=== PATIENT | female | born 1940 | race Caucasian/White ===

== ENCOUNTER → 2018-06-09 | Outpatient (REF) | payer MEDICARE, BC ==
[2018-06-09 14:14] LABS: BASO # 0.1 10^3/uL (0.0-0.2); BASO % 0.9 % (0.0-1.0); EOS # 0.2 10^3/uL (0.0-0.50); EOS % 2.9 % (0.0-3.0); HEMATOCRIT 45.8 % (36.0-47.0); HEMOGLOBIN 15.1 g/dl (12.0-15.5); LYMPH # 1.5 10^3/uL (1.5-4.5); LYMPH % 26.6 % (24.0-44.0); MEAN CORPUSCULAR VOLUME 91.1 fl (80.0-96.0); MONO # 0.4 10^3/uL (0.0-0.8); MONO % 7.2 % (0.0-5.0); NEUTROPHILS # 3.4 10^3/uL (1.8-7.7); NEUTROPHILS % 62.2 % (36.0-66.0); PLATELET COUNT, AUTOMATED 275 10^3/uL (150-450); RED BLOOD COUNT 5.03 10^6/uL (4.00-5.40); WHITE BLOOD COUNT 5.5 10^3/uL (4.0-10.0)
[2018-06-09 14:34] LABS: HEMOGLOBIN A1c 6.3 %
[2018-06-09 14:43] LABS: ALT/SGPT 57 U/L (12-78); BILIRUBIN,TOTAL 0.7 MG/DL (0.2-1.0); BLOOD UREA NITROGEN 10 MG/DL (7-18); CARBON DIOXIDE LEVEL 28 MEQ/L (21-32); CHLORIDE LEVEL 107 MEQ/L (98-107); CHOLESTEROL LEVEL 248 MG/DL (<200); CHOLESTEROL RISK RATIO 5.061 (<5); CREATININE FOR GFR 0.63 MG/DL (0.55-1.30); FREE T4 1.08 NG/DL (0.76-1.46); GLOMERULAR FILTRATION RATE > 60.0 (>39); GLUCOSE, FASTING 115 MG/DL (70-100); HDL CHOLESTEROL 49 MG/DL (>40); LDL CHOLESTEROL 170 MG/DL (<100); NON-HDL-C 199 MG/DL; POTASSIUM SERUM 4.3 MEQ/L (3.5-5.1); SODIUM LEVEL 140 MEQ/L (136-145); TOTAL PROTEIN 7.1 GM/DL (6.4-8.2); TRIGLYCERIDES LEVEL 146 MG/DL (<150)
[2018-06-09 14:47] LABS: TOTAL 25(OH) VITAMIN D 40.6 NG/ML (30.0-100.0)
== END ==
LOC: M SFHCSACK 09:03
PROVIDERS: ATTEND Physician Assistant
DX: I10 Essential (primary) hypertension (principal); E78.2 Mixed hyperlipidemia; Z80.8 Family history of malignant neoplasm of other organs or systems; Z83.3 Family history of diabetes mellitus; E55.9 Vitamin D deficiency, unspecified

== ENCOUNTER 2018-11-29 09:53 | Inpatient (IN) | payer MEDICARE, BC ==
[~2018-11-29] VITALS: Ht 160 cm; Wt 88.7 kg
[2018-11-29] MEDS ORDERED: AMLO5TAB6 PO (10:02)
--- NOTE | 2018-11-29 10:38 | REP ---
Portable chest, 10:19 a.m., single AP view with the patient sitting: There are no comparisons. The lung og are clear. The cardiac size is normal. The adam, mediastinum, and skeletal structures are unremarkable. Impression: Negative portable chest. Electronically Signed by Edu Carter MD 11/29/2018 10:30 A
[2018-11-29] MEDS ORDERED: ASPIRIN 325 MG TAB PO ONE (10:45)
[2018-11-29 10:57] LABS: BASO # 0.1 10^3/uL (0.0-0.2); EOS # 0.1 10^3/uL (0.0-0.5); HEMATOCRIT 45.6 % (36.0-47.0); HEMOGLOBIN 15.3 g/dl (12.0-15.5); LYMPH # 1.4 10^3/uL (1.5-5.0); MEAN CORPUSCULAR HEMOGLOBIN 30.7 pg (27.0-33.0); MEAN CORPUSCULAR HGB CONC 33.6 g/dl (32.0-36.5); MEAN CORPUSCULAR VOLUME 91.4 fl (80.0-96.0); MONO # 0.5 10^3/uL (0.0-0.8); MONO % 7.6 % (0.0-5.0); NEUTROPHILS # 3.9 10^3/uL (1.5-8.5); NEUTROPHILS % 66.1 % (36.0-66.0); PLATELET COUNT, AUTOMATED 269 10^3/uL (150-450); RED BLOOD COUNT 4.99 10^6/uL (4.00-5.40)
[2018-11-29 11:15] LABS: INR 0.99; PROTHROMBIN TIME 12.8 SECONDS (11.8-14.0)
[2018-11-29] MEDS ORDERED: ASPI81TA85 PO (11:15)
[2018-11-29] MEDS ORDERED: AIRB1TAB PO (11:15)
[2018-11-29 11:16] LABS: PARTIAL THROMBOPLASTIN TIME 32.8 SECONDS (25.0-38.4)
[2018-11-29] MEDS ORDERED: LABETALOL HCL 100 MG/20 ML VIAL IV STA (11:18)
[2018-11-29 11:20] LABS: BLOOD UREA NITROGEN 10 MG/DL (7-18); CARBON DIOXIDE LEVEL 27 MEQ/L (21-32); CHLORIDE LEVEL 106 MEQ/L (98-107); CK-MB VALUE MASS 1.4 NG/ML (<3.6); CPK CREATINE PHOSPHOKINASE 68 U/L (26-192); CREATININE FOR GFR 0.68 MG/DL (0.55-1.30); GLOMERULAR FILTRATION RATE > 60.0 (>39); GLUCOSE, FASTING 146 MG/DL (70-100); MB/CK RELATIVE INDEX 2.06 (< OR =4); SODIUM LEVEL 142 MEQ/L (136-145); TROPONIN I < 0.02 NG/ML (< 0.10)
--- NOTE | 2018-11-29 11:39 | REP ---
CT of the brain without IV contrast: There are no comparisons. There is no hemorrhage. There is no edema, mass effect or midline shift. The cortical stripe is unremarkable. The sulci are diffusely enlarged compatible with diffuse cortical atrophy. Impression: There is no hemorrhage, acute infarct or mass. Diffuse cortical atrophy. Electronically Signed by Edu Carter MD 11/29/2018 11:31 A
[2018-11-29 12:48] LABS: RHEUMATOID FACTOR QUANT < 10.0 IU/ML (<15.0)
[2018-11-29] MEDS ORDERED: ATORVASTATIN 20 MG TAB PO ONE (13:00)
[2018-11-29 13:05] LABS: ERYTHROCYTE SEDIMENTATION RATE 13 mm/hr (0-30)
--- NOTE | 2018-11-29 13:16 | REPVR ---
PROCEDURE INFORMATION: Exam: MR Head Without Contrast Exam date and time: 11/29/2018 10:45 AM Clinical history: 78 years old, female; Weakness, extremity; Left; Additional info: CVA left sided weakness TECHNIQUE: Imaging protocol: MR of the head without contrast. COMPARISON: CT Head without contrast 11/29/2018 10:20 AM FINDINGS: Brain: Examination reveals a 12 x 7 mm focus of restricted diffusion in the posterior limb of right internal capsule consistent with acute infarction. No acute hemorrhage, masses or midline shift is seen. There are multiple small hypointense blooming artifacts noted in bilateral cerebral hemispheres, basal ganglia, thalami and midline pratik likely representing small foci of chronic hemorrhage/mineral deposition likely related to chronic hypertension on gradient echo/susceptibility weighted images. There is moderate patchy increased T2 signal intensity within the bilateral cerebral periventricular white matter, consistent with chronic microvascular ischemic changes. There are multiple small focal areas of chronic ischemia in bilateral frontal, parietal and periatrial white matter. Chronic ischemic changes/lacunar infarctions are seen in bilateral basal ganglia. There is mild diffuse cerebral atrophy present, consistent with this patient's age. Brainstem: Chronic ischemic changes are seen in the pratik. Ventricles: The ventricular system demonstrates mild diffuse compensatory enlargement. Bones/joints: Unremarkable. Soft tissues: Unremarkable. Sinuses: Normal as visualized. No acute sinusitis. Mastoid air cells: Normal as visualized. No mastoid effusion. Orbits: Unremarkable. IMPRESSION: 1. Examination reveals a 12 x 7 mm focus of restricted diffusion in the posterior limb of right internal capsule consistent with acute infarction. No acute hemorrhage, masses or midline shift is seen. 2. There are multiple small hypointense blooming artifacts noted in bilateral cerebral hemispheres, basal ganglia, thalami and midline pratik likely representing small foci of chronic hemorrhage/mineral deposition likely related to chronic hypertension on gradient echo/susceptibility weighted images. Electronically signed by: Shorty Johnson On 11/29/2018 13:15:38 PM
--- NOTE | 2018-11-29 13:18 | REPVR ---
PROCEDURE INFORMATION: Exam: MR Angiogram Head Without Contrast, Arteries Exam date and time: 11/29/2018 10:45 AM Clinical history: 78 years old, female; Weakness; Additional info: CVA left sided weakness TECHNIQUE: Imaging protocol: MR angiogram head without contrast. Exam focused on the arteries. Other technique: 3-D reconstructed images were submitted for interpretation. COMPARISON: CT Head without contrast 11/29/2018 10:20 AM FINDINGS: Right internal carotid artery: Unremarkable. Intracranial segment is patent with no significant stenosis. No aneurysm. Right anterior cerebral artery: Unremarkable. No occlusion or significant stenosis. No aneurysm. Right middle cerebral artery: Unremarkable. No occlusion or significant stenosis. No aneurysm. Right posterior cerebral artery: Unremarkable. No occlusion or significant stenosis. No aneurysm. Right vertebral artery: Unremarkable. No occlusion or significant stenosis. No aneurysm. Left internal carotid artery: Unremarkable. Intracranial segment is patent with no significant stenosis. No aneurysm. Left anterior cerebral artery: Unremarkable. No occlusion or significant stenosis. No aneurysm. Left middle cerebral artery: Unremarkable. No occlusion or significant stenosis. No aneurysm. Left posterior cerebral artery: Unremarkable. No occlusion or significant stenosis. No aneurysm. Left vertebral artery: Unremarkable. No occlusion or significant stenosis. No aneurysm. Basilar artery: Unremarkable. No occlusion or significant stenosis. No aneurysm. IMPRESSION: No acute findings. Electronically signed by: Shorty Johnson On 11/29/2018 13:18:31 PM
[2018-11-29] MEDS: ENOXAPARIN 40 MG/0.4 ML SYRINGE (J1650) SC SCH (13:19)
[2018-11-29] MEDS ORDERED: CLOPIDOGREL 75 MG TAB PO ONE (14:00)
[2018-11-29] MEDS: METOPROLOL TART 25 MG TABLET PO SCH ×2 (14:48→20:38)
--- NOTE | 2018-11-29 15:00 | REP ---
Bilateral carotid artery duplex ultrasound: Peak flow velocity analysis: RIGHT LEFT ICA Peak flow velocity cm/sec 87.9 71.0 ICA Diastolic flow velocity cm/sec 23.1 19.6 ICA/CCA Ratio 1.3 1.14 ECA Peak flow velocity cm/sec 125.9 99.8 CCA Peak flow velocity cm/sec 98.5 111.7. The There is shallow atheromatous plaque diffusely bilaterally from the common carotid arteries to the bulb is and into the internal and external carotid arteries bilaterally. There is focally moderate plaque at the origins of the internal carotid arteries and external carotid arteries bilaterally. The peak flow velocities are normal bilaterally. The findings indicate there is less than 50% of luminal narrowing bilaterally. There is no significant stenosis on the right on the left. There is antegrade flow in the vertebral arteries bilaterally. Impression: No significant stenosis on the right or the left. Electronically Signed by Edu Carter MD 11/29/2018 02:52 P
--- NOTE | 2018-11-29 15:38 | HPE ---
DATE OF ADMISSION: 11/29/2018 CHIEF COMPLAINT: Left arm and hand weakness. HISTORY OF PRESENT ILLNESS: This is a 71-year-old female with a history of dyslipidemia, hypertension, over 50 years of second-hand smoking from a who smoked four packs per day, who was in her usual state of health until yesterday morning when she woke up at 7-7:30 in the morning and noted that her left arm was weak. She noted that she was dropping things with her left hand, and she could not regain any good functioning. She was still able to do things but very slowly. She then drove herself, went shopping. She was able to eat. She just felt very clumsy. At that time, around 5:30 she called her children, and they had dinner at [facility]. She had no facial drooping. She had no slurring of speech. Family noted that she was able to handle her utensils without difficulty. She is right-handed at baseline. She then went home, drove herself home. That is when she noted that she started to have slurring of speech again, and at nighttime around 9:30, when two adopted cats jumped on her bed, she tried to tell them to get out. She had difficulty pronouncing her words and heard herself mumbling instead. All through the night she was tossing and turning at home. Did not seek any medical attention. She did take two small baby aspirin, 81 mg. In the morning when her daughter came to see her, she was able to walk to the door, open the door. She was noted to have persistent slurred speech. Her daughter convinced her to come into the emergency room. As she was getting into the car, it was difficult for her to step into the car on her left side and had to position herself, because her foot felt like it was dragging. She walked unassisted, but in the emergency room (ER) there was a weakness noted on the left arm and leg with CT of the head being negative. MRI of the brain, however, shows an acute infarct in the right internal capsule in the posterior limb. Patient was given aspirin 325 mg and Plavix 75 mg. She refused Lipitor, stating that she had a significant amount of weakness when she was put on that. Her initial blood pressure on admission was 182/90, which peaked at 204/98. ER physician had given her intravenous labetalol 10 mg with improvement to 168/91. MRA of the brain showed no aneurysm. Hospitalist service was called to admit for acute right internal capsule cerebrovascular accident (CVA) with persistent left-sided weakness with slurring of speech. Per Dr. Giron, neurologist personal computer network analyst, the patient is to have an echo, carotid Dopplers, admit to telemetry for arrhythmia monitoring. PAST MEDICAL HISTORY: 1. Hypertension. 2. Dyslipidemia. 3. More than 50 years of second-hand smoking with her smoking four packs per day for 50 years until he . 4. Vitamin D deficiency. ALLERGIES: IODINE, causing hives, seasonal allergies. PAST SURGICAL HISTORY: 1. 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 2. Enlarged lymph node on the left side that was removed 25 years ago. HOME MEDICATIONS: - amlodipine 5 mg daily - aspirin 162 mg as needed for discomfort - multivitamin - Airborne Effervescent one tablet daily CURRENT HOSPITAL MEDICATIONS: - aspirin 81 mg daily - Plavix 75 mg daily - metoprolol 25 mg every 6 hours; hold for systolic pressure less than 160 - hydralazine 10 mg by mouth every 6 hours; hold for systolic pressure less than 160 FAMILY HISTORY: Father and mother are . One son is alive. Another daughter, alive, age 42. She has three sons and one daughter. Mother had many transient ischemic attacks (TIAs) and was on warfarin. at the age of 83. Father had CAD, myocardial infarction (CO). at the age of 76. Grandmother had polycythemia vera. SOCIAL HISTORY: Patient currently lives in a ranch apartment for the past year. Bedroom, bathroom, kitchen are all on the same floor. There are no steps to get into the apartment. Patient denies any history of smoking but has been exposed to second-hand smoking for the past 57 years with her smoking four packs per day. 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 She denies any alcohol use. Has occasional wine or cider during the holidays REVIEW OF SYSTEMS: Per history of present illness (HPI). A 12-point system otherwise negative. PHYSICAL EXAMINATION: Temperature 98.9, pulse 79, respiratory rate 17, blood pressure on arrival was 182-202 systolic, diastolic of 90-93. Patient had a peak blood pressure of 217/103, at which point she received IV labetalol 10 mg, which resulted in improvement of blood pressure to 168/91. Pulse sinus rhythm, ventricular rate of 70-79, respiratory rate 15-17, pulse oximetry is 96% on room air. Generally, patient is awake, alert, oriented to person, place, and time. Able to provide a history. Her speech is fluent. She has no expressive aphasia. There is no slurring of speech. She has no facial asymmetry. No jugular venous distention. No thyromegaly. Left hand has 4/5 motor function. Left lower extremity is 4/5. No sensory disturbance. Downgoing toes. No pronator drift. White count 6, hemoglobin 15, hematocrit 45, platelet count 269. Sodium 142, potassium 4, chloride 106, bicarbonate 27, BUN 10, creatinine 0.69, glucose 146, calcium 9. Total CK 68, MB fraction 1.4, troponin less than 0.02. EKG: Sinus rhythm, ventricular rate of 78 with inferior changes. Troponin is less than 0.02. CT of the head: No acute infarct, mass, hemorrhage, diffuse cortical atrophy. Chest x-ray 11/29/2018: Negative portable chest. Brain MRI 11/29/2018 shows 12 x 7 mm focus of restricted diffusion in the posterior limb of the right internal capsule, consistent with acute infarct. No acute hemorrhage, mass midline shift. Multiple small hypointense blooming artifacts in bilateral cerebral hemisphere, basal ganglia, thalami, midline pratik, representing small foci of chronic hemorrhage, mineral deposition, likely related to chronic hypertension. There is moderate patchy increased T2 signal intensity within bilateral cerebral periventricular white matter, consistent with chronic microvascular ischemic changes. Multiple small focal areas of chronic ischemia in bilateral frontal, parietal, periatrial white matter. Chronic ischemic changes, lacunar infarcts are seen in bilateral basal ganglia. Mild diffuse cerebral atrophy, consistent with the patient age. Chronic ischemic changes seen in the pratik, ventricular system. Mild diffuse compensatory enlargement. No acute sinusitis. MRA of the brain: No acute findings. Intracranial segment is patent with no significant stenosis. No aneurysm in the left interna carotid artery, left anterior cerebral artery, left middle cerebral artery, left posterior cerebral artery, left vertebral artery. ASSESSMENT AND PLAN: This is a 78-year-old female with a history of dyslipidemia, hypertension, second-hand smoking exposure of 57 years due to smoking four packs a day presents to the emergency room with 2-day history of left arm and hand weakness with worsening in the left lower extremity and new onset of slurring of speech starting at 9:30 p.m. last evening. Symptoms started at 7:[address] of the head was negative. MRI shows acute infarct in the right internal capsule. Patient had received aspirin. She is admitted as an inpatient for two midnights for treatment of acute CVA. 1. Acute right internal capsule CVA. MRA shows no stenosis or aneurysm. Patient has been given aspirin. She will be continued on aspirin 81 mg daily, Plavix 75 mg daily. Blood pressure control but will remain with permissive hypertension. Keep blood pressure above 160 for the first 24 hours with holding parameters on the metoprolol. Patient states that she has had an allergy to statin medications, in particular, Lipitor causing her weakness. Dr. Giron, neurologist, has been consulted and recommended an echocardiogram and carotid Doppler, telemetry monitoring to rule out arrhythmia. Patient will be checked for cardiac lipid profile, antinuclear antibody (MARIO), rheumatoid factor, Homocystine, lupus type anticoagulant. Neurologic checks every 4 hours with telemetry monitoring. Repeat CT if no neurological changes are noted. As the patient had recently had some slurring of speech and dysarthria, which is completely resolved, she has been kept nothing by mouth and aspiration precautions for now. Swallow evaluation by speech therapy. Physical therapy (PT)/occupational therapy (OT) and acute rehabilitation unit admission screen. 2. Hypertensive urgency with presenting blood pressure of 204/98 and 217/103. Patient did receive labetalol intravenously, but due to acute right internal capsule CVA, patient will be permitted to have permissive hypertension. Will hold blood pressure medications for systolic pressure that is less than 160. 3. Dyslipidemia. Patient is not on any statin medications due to prior complaints of weakness with statins, particularly Lipitor 4. Code status. Patient is a full code. Patient's daughter, Sariah Wei, phone number [phone], is present at the bedside. 5. Deep vein thrombosis (DVT) prophylaxis with Lovenox. 6. Diet. Potential aspiration risk. Keep nothing by mouth and check for aspiration. If no signs of aspiration, may have a [id number] diet. MTDD
[2018-11-29 16:11] VITALS: BP 160/74
[2018-11-29] MEDS ORDERED: SLF 3 ML SYR IV PRN (17:15)
[2018-11-29] MEDS: **hydrALAZINE** 10 MG TAB PO SCH ×2 (17:41→22:55)
[2018-11-29 20:00] VITALS: BP 174/86
[2018-11-29] MEDS: SLF 3 ML SYR IV SCH (22:55)
[2018-11-29 23:59] VITALS: BP 178/79
[2018-11-30] VITALS (7 sets, daily range): BP systolic 130–179; BP diastolic 76–90
[2018-11-30] MEDS: METOPROLOL TART 25 MG TABLET PO SCH ×2 (02:09→08:31)
[2018-11-30] MEDS: **hydrALAZINE** 10 MG TAB PO SCH ×2 (03:34→10:00)
[2018-11-30] MEDS: SLF 3 ML SYR IV SCH ×3 (05:30→21:37)
[2018-11-30 06:16] LABS: HEMATOCRIT 43.9 % (36.0-47.0); HEMOGLOBIN 14.3 g/dl (12.0-15.5); MEAN CORPUSCULAR HEMOGLOBIN 30.1 pg (27.0-33.0); MEAN CORPUSCULAR HGB CONC 32.6 g/dl (32.0-36.5); MEAN CORPUSCULAR VOLUME 92.4 fl (80.0-96.0); PLATELET COUNT, AUTOMATED 264 10^3/uL (150-450); RED BLOOD COUNT 4.75 10^6/uL (4.00-5.40); WHITE BLOOD COUNT 6.9 10^3/uL (4.0-10.0)
[2018-11-30 06:35] LABS: ALBUMIN 3.4 GM/DL (3.2-5.2); ALT/SGPT 92 U/L (12-78); BILIRUBIN,DIRECT 0.2 MG/DL (0.0-0.2); BILIRUBIN,TOTAL 0.6 MG/DL (0.2-1.0); BLOOD UREA NITROGEN 12 MG/DL (7-18); CALCIUM LEVEL 8.6 MG/DL (8.8-10.2); CARBON DIOXIDE LEVEL 27 MEQ/L (21-32); CHLORIDE LEVEL 107 MEQ/L (98-107); CHOLESTEROL LEVEL 210 MG/DL (<200); CHOLESTEROL RISK RATIO 5.526 (<5); CREATININE FOR GFR 0.67 MG/DL (0.55-1.30); GLOMERULAR FILTRATION RATE > 60.0 (>39); GLUCOSE, FASTING 119 MG/DL (70-100); HDL CHOLESTEROL 38 MG/DL (>40); LDL CHOLESTEROL 146 MG/DL (<100); NON-HDL-C 172 MG/DL; POTASSIUM SERUM 3.8 MEQ/L (3.5-5.1); SODIUM LEVEL 142 MEQ/L (136-145); TOTAL PROTEIN 6.8 GM/DL (6.4-8.2); TRIGLYCERIDES LEVEL 131 MG/DL (<150)
--- NOTE | 2018-11-30 08:11 | ECGEPIP ---
[facility] - ED Test Date: 2018-11-29 Pat Name: RISHABH FELDMAN Department: Room: - Gender: Female Manager Actuarial: JChandan : 1940 Requested By: BALTAZAR Quevedo Order Number: [id number] Reading MD: Kallie Curran Measurements Intervals [place] Rate: 78 P: 51 AR: 151 QRS: 17 QRSD: 101 T: 12 QT: 378 QTc: 431 Interpretive Statements SINUS RHYTHM PROBABLE INFERIOR MYOCARDIAL INFARCTION, PROBABLY OLD NSTTW abnormalities No prior Electronically Signed on 11-30-2018 8:11:28 EDT by Kallie Curran
[2018-11-30] MEDS: ENOXAPARIN 40 MG/0.4 ML SYRINGE (J1650) SC SCH (08:30)
[2018-11-30] MEDS: CLOPIDOGREL 75 MG TAB PO SCH (08:31)
--- NOTE | 2018-11-30 08:37 | ECHO ---
DATE OF PROCEDURE: 11/29/2018 Date of : 1940 Age: 78 Gender: Female Height: 63 inches Weight: 198 pounds Body surface area: 1.93 meters squared Inpatient - currently in the emergency room. REFERRING PHYSICIAN: Dr. Tena Lawson INDICATION: CVA. MEASUREMENTS: 2D Measurements: RV: 3.2 cm LV: 4.2 cm Septum: 1.0 cm Posterior wall: 1.0 cm Aortic root: 3.4 cm LA: 3.8 cm LVEF: 75% Doppler Measurements: AV: 1.5 meters per second LVOT: 1.0 meters per second LVOT diameter: 1.8 cm MV-E: 95, A: 124, E/A ratio: 0.8 Early mitral deceleration time: 236 milliseconds E prime: 7.2, A prime: 8.7, E/E prime ratio: 13.6 Pulmonary capillary wedge pressure: 13.2 mmHg PV: 0.9 meters per second Pulmonary artery acceleration time: 127 milliseconds RVSP: 29 mmHg IVC: 1.6 cm COMMENTS: Normal sinus rhythm without intraventricular conduction disturbance. M-mode and two-dimensional echocardiography was performed with pulsed, continuous wave, color flow and tissue Doppler studies. Normal left ventricular size, wall thickness and hyperkinetic wall motion. Borderline dilated left atrium with Doppler evidence of an impairment of left ventricular (LV) diastolic function and current estimated mean left atrial pressure upper limits of normal. Normal right heart chamber sizes and motion with Doppler estimated pulmonary arterial pressure upper limits of normal. Normal inferior vena cava (IVC) size and collapse against an elevated central venous pressure. Subtle aortic valvular sclerosis without functional abnormality. Normal aortic dimensions. Mildly thickened mitral valvular apparatus with adequate leaflet excursion and possibly some prolapse associated with at least mild mitral insufficiency. Could not rule out a vegetation with certainty. Normal appearing and functioning tricuspid valve. No pericardial effusion. If a cardiac source of embolic material is seriously suspect, especially with the mitral valve findings, we would recommend a transesophageal echocardiogram be performed along with a complete blood count, sedimentation rate and two sets of blood cultures by 12 hours.
[2018-11-30] MEDS ORDERED: ASPIRIN 325 MG TAB PO SCH (09:00)
[2018-11-30] MEDS ORDERED: ATENOLOL 50 MG TAB PO SCH (09:00)
[2018-11-30] MEDS ORDERED: hydroCHLOROthiazide 25 MG TAB PO SCH (09:00)
[2018-11-30] MEDS: ASPIRIN 81 MG CHEW TABLET PO SCH (10:03)
--- NOTE | 2018-11-30 10:33 | CR ---
DATE OF CONSULTATION: 11/29/2018 REFERRING PHYSICIAN: Dr. Tena Lawson. REASON FOR CONSULTATION: Left arm and hand weakness, imbalance and slurred speech. HISTORY OF PRESENT ILLNESS: The patient is a 78-year-old woman with history of hypertension, dyslipidemia with second hand smoking from her who smoked four packs per day for 50 years who woke up in the morning of November 28, 2018 and felt that she was dropping things with her left hand. She could not regain any good function of her left hand. She was able to do things slowly. She went shopping and drove. She felt clumsy. She had dinner with her family and was dropping things from her left hand. She did not have any facial weakness at that time. That night when she was with her cats, she felt her speech was slurred. She was feeling clumsy and off balance. She woke up in the morning and felt her speech was off and her left arm was week. Her daughter came to see her and brought her to emergency department. She was noted to have weakness of her left arm and leg. She denies any headaches, neck or back pain. She denies dysphagia, diplopia, urinary incontinence, falls or loss of consciousness. DIAGNOSTIC STUDIES: CT scan of her head was unremarkable. MRI scan of brain showed a small right internal capsule, acute ischemic stroke. She also has extensive small-vessel ischemic disease of brain and bilateral basal ganglia old lacunar strokes. MRA brain and carotid ultrasound are reportedly unremarkable. PAST MEDICAL HISTORY: Hypertension. Dyslipidemia. History of secondhand smoking. Vitamin D deficiency. Parotid tumor resection in 1997. Enlarged lymph node removed 25 years ago. ALLERGIES: IODINE. HOME MEDICATIONS: - amlodipine 5 mg p.o. daily. - She does not take aspirin usually but she took two tablets of 81 mg aspirin the day she had her neurological symptoms. - multivitamin FAMILY HISTORY: Her mother had transient ischemic attacks and was on Coumadin and she from cerebral hemorrhage. Father had coronary artery disease. SOCIAL HISTORY: She denies smoking, but was exposed to secondhand smoking as her smoked for many years as described above. She denies alcohol or illicit drugs. REVIEW OF SYSTEMS: All systems were reviewed and found to be noncontributory except as mentioned in history of present illness. PHYSICAL EXAMINATION: Blood pressure in the emergency department was 217/103 and current blood pressure is 164/91, temperature 97, pulse 68, respiratory 13, 96% saturation on room air. Heart: Regular rate and rhythm. Lungs: Clear to auscultation. Abdomen: Soft, nontender, nondistended. No pedal edema. No musculoskeletal abnormalities. No rash. No signs of meningeal irritation. The patient is awake, alert, oriented to place, person and time. Normal speech, comprehension and repetition. Extraoral muscles are intact. No facial weakness. Tongue and uvula are midline. 5-/5 strength in left arm. She has mild left pronator drift. She has slowing of movement of left hand fingers. Strength in her legs is 5/5. Deep tendon flexes 1+ throughout. Normal sensation throughout. Gait is mildly unsteady. ASSESSMENT: 1. Acute posterior limb of the right internal capsule small ischemic stroke. 2. Extensive small-vessel ischemic disease of brain and old bilateral lacunar strokes. 3. Clumsy left hand and dysarthria syndrome related to above. PLAN: 1. Continue telemetry monitoring. 2. Echocardiogram. 3. Aspirin 81 mg by mouth daily and Plavix 75 mg by mouth daily. 4. Check fasting lipid profile. The patient had difficulty tolerating Lipitor in past. Pravastatin or Crestor can be considered based on her lipid profile tomorrow. 5. Physical and occupational therapy. 6. Follow with our office in 2 - 4 weeks after hospital discharge.
[2018-11-30] MEDS ORDERED: ASPI81CH8 PO (11:05)
[2018-11-30] MEDS ORDERED: CLOP75TA2 PO (11:05)
[2018-11-30] MEDS ORDERED: LISI10TA15 PO (11:05)
[2018-11-30] MEDS ORDERED: ATEN50TA2 PO (11:05)
[2018-11-30] MEDS ORDERED: CRES10TA PO (11:05)
--- NOTE | 2018-11-30 11:58 | IPN ---
DATE OF SERVICE: 11/30/2018 SUBJECTIVE: Patient still complains of left arm weakness and despite tolerating her diet well, she still notices some heaviness in her tongue. No signs of aspiration, coughing when she eats. According to nursing, no fever, chills, shortness of breath, chest pain, pressure or tightness. Patient is ambulating well and has passed a home safety evaluation with recommendations for outpatient physical therapy. Telemetry with sinus rhythm overnight. No arrhythmias, atrial fibrillation or atrial flutter. Echocardiogram read by Dr. Pearl shows ejection fraction (EF) of 75% with normal LV size, wall motion, some impairment of diastolic dysfunction possibly with some mitral valve prolapse with at least mild mitral insufficiency. Normal appearing and functioning tricuspid valves. Patient has been started on aspirin and Plavix. No overnight issues per nursing. Blood pressure has been maintained between 160 to 180 overnight on metoprolol and hydralazine. Vital signs: Temperature 97.2, pulse 74, respiratory rate 18, blood pressure is 179/84, currently 158/74, 96% on room air. NEURO:patient is awake, alert, oriented to person, place and time, answering questions appropriately without expressive aphasia or word finding difficulties. No use of respiratory accessory muscles. Speech is fluent. Able to comprehend. No facial asymmetry. speaks in full sentences. Tongue is midline. Motor function is 5/5 on bilateral upper and lower extremities. Patient has some dysmetria on finger to nose testing of the left hand. HEENT: EOMI, NCAT, no JVD, thyromegaly, cervical LAD, moist mucus membranes LUNGS: CTAB AEBE no wheezing, rales, or rhonchi HEART: S1 S2 Sinus rhythm, nondisplaced PMI, no rubs, or gallops ABD: obese, soft NT ND no HSM no abdominal bruits (+) bowel sounds EXT: no cyanosis, clubbing or pitting edema. LABORATORY DATA: White count 6.9, hemoglobin 14, hematocrit 43, platelet count 264. Sodium 142, potassium 3.9, chloride 107, bicarbonate 27, BUN 12, creatinine 0.67, glucose 119. Total bilirubin 0.6, direct bilirubin 0.2, AST 44, ALT 92, alkaline phosphatase 108, troponin less than 0.02, total protein 6.8, albumin of 3.4, triglyceride 131, LDL 146, non-HDL 172, HDL 38, homocystine is pending. 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 Per Dr. Giron, continue with aspirin and Plavix, pravastatin or Crestor due to intolerance to Lipitor. Outpatient physical therapy and followup in the office in 2 weeks after hospital discharge. MRA Brain, carotid dopplers,and Echocardiogram were negative. Rheumatologic workup and hypercoagulable workup are still pending. Hypertensive emergency with presenting blood pressure of 217/103 in the emergency s/p iv labetalol with permissive hypertension of 160-180 mmHg over the next 24hrs after admission. was on metoprolol 25 every 6 hours and hydralazine overnight with holding parameters for systolic pressure<160 mmHg. To simplify medical regimen for home, will attempt once daily medications with atenolol, lisinopril. Abnormal EKG with old inferior wall MS no acute complaints of ischemia. Echo is unremarkable. Pt risk factors for CAD include >50 years secondhand cigarette smoking from her who used to smoke 4ppd x 57 years of their marriage, hyperlipidemia, post- menopausal state, hypertension, hypercholesterolemia, and psychosocial stressors with being unable to sell her house in [place] since her and one year anniversary of her son's this November. continue on ASA. pt is reluctant to take statins due to prior history of lipitor-induced weakness. Crestor, per pt request, has been discontinued. Diastolic Dysfunction, euvolemic detected on Echo. optimize blood pressure control, HANSEL diet, and LONA inhibitor or ARB if tolerated. Dyslipidemia, pravastatin or Crestor per neurology recommendations. DISPOSITION: Discharge home in the morning with outpatient followup with neurology, primary care physician and outpatient physical therapy. MTDD
[2018-11-30] MEDS ORDERED: NS 500 ML IV ONE (18:00)
--- NOTE | 2018-11-30 18:01 | IPN ---
DATE: 11/30/2018 CRITICAL CARE NOTE 4:48 pm - 5:28 pm RN paged regarding patient complaining of worsening weakness and heaviness of her tongue noted while she was eating her salad at lunch today, with some slurred speech. Symptoms slowly resolved when the patient took a nap after lunch, but c/o persistent weakness, and "no energy." Per the Daughter at the bedside, slurring of speech got better but "she can't even pull herself up on the bed." PHYSICAL EXAMINATION: Physical examination is unchanged. Temperature 98.1, pulse 72, respiratory rate 18, blood pressure 142/76, 97% on room air. Neuro Exam: The patient is awake, alert, oriented times three. There is no slurring of speech. She is able to speak in full sentences. No respiratory distress. Extraocular muscles are intact. Tongue and uvula are midline. Motor function on the left upper and lower extremities is 5/5. Left sided dysmetria on finger to nose testing, unchanged examination from previous earlier this morning. She has normal sensation bilaterally. ASSESSMENT AND PLAN: 1. Generalized weakness in the setting of an acute right internal capsule CVA. Obtain repeat CT of the brain to rule out edema, mass effect or hemorrhagic transformation. Normal saline 500 bolus to allow for permissive hypertension. Continue aspirin and Plavix for now. Crestor has been discontinued. The patient complains of severe weakness. Lisinopril has been changed to in the morning with holding parameters for systolic pressure less than 140. MTDD
--- NOTE | 2018-11-30 18:16 | REPVR ---
PROCEDURE INFORMATION: Exam: CT Head Without Contrast Exam date and time: 11/30/2018 5:53 PM Clinical history: 78 years old, female; Weakness, extremity; Left; Additional info: CVA TECHNIQUE: Imaging protocol: Computed tomography of the head without contrast. Radiation optimization: All CT scans at this facility use at least one of these dose optimization techniques: automated exposure control; mA and/or kV adjustment per patient size (includes targeted exams where dose is matched to clinical indication); or iterative reconstruction. COMPARISON: CT Head without contrast 11/29/2018 10:20 AM FINDINGS: Brain: There is mild parenchymal volume loss. White matter changes are demonstrated in the subcortical, centrum semiovale and periventricular white matter consistent with age related small vessel white matter angiopathic gliosis. Ventricles: Normal. No ventriculomegaly. Bones/joints: Unremarkable. No acute fracture. Sinuses: Visualized sinuses are unremarkable. No fluid levels. Mastoid air cells: Visualized mastoid air cells are well aerated. Soft tissues: Unremarkable. IMPRESSION: There is mild parenchymal volume loss. White matter changes are demonstrated in the subcortical, centrum semiovale and periventricular white matter consistent with age related small vessel white matter angiopathic gliosis. Electronically signed by: Carlos Diego On 11/30/2018 18:16:02 PM
[2018-11-30] MEDS ORDERED: SODIUM CHLORIDE 0.9% 500 ML IV ONE (19:45)
[2018-11-30] MEDS ORDERED: LISINOPRIL 10 MG TAB PO SCH (21:00)
[2018-11-30] MEDS ORDERED: NS 1,000 ML IV SCH (21:00)
[2018-11-30] MEDS ORDERED: ROSUVASTATIN 10 MG TAB (CRESTOR) PO SCH (21:00)
[2018-11-30] MEDS ORDERED: ATORVASTATIN 20 MG TAB PO SCH (21:00)
[2018-12-01 04:00] VITALS: BP 182/84
[2018-12-01] MEDS: SLF 3 ML SYR IV SCH ×2 (05:18→08:45)
[2018-12-01] MEDS ORDERED: LISINOPRIL 10 MG TAB PO SCH (06:00)
[2018-12-01] MEDS ORDERED: LISI10TA4 PO (06:47)
[2018-12-01 07:36] VITALS: BP 152/84
[2018-12-01 08:43] VITALS: BP 144/70
[2018-12-01] MEDS: ASPIRIN 81 MG CHEW TABLET PO SCH (08:44)
[2018-12-01] MEDS: CLOPIDOGREL 75 MG TAB PO SCH (08:44)
[2018-12-01] MEDS: ENOXAPARIN 40 MG/0.4 ML SYRINGE (J1650) SC SCH (08:45)
[2018-12-01] MEDS ORDERED: amLODIPine 5 MG TAB PO SCH (09:00)
[2018-12-01 11:40] VITALS: BP 166/84
[2018-12-03 08:19] LABS: ANTI DOUBLE STRAND-DNA AB <1 IU/mL (0-9); ANTINUCLEAR ANTIBODIES DIRECT Positive (Negative); HOMOCYST(E)INE SERUM 8.7 umol/L (0.0-15.0); RNP ANTIBODIES 0.3 AI (0.0-0.9); SJOGREN'S ANTI SS-A <0.2 AI (0.0-0.9); SJOGREN'S ANTI SS-B <0.2 AI (0.0-0.9); SMITH ANTIBODIES <0.2 AI (0.0-0.9)
== END 2018-12-01 14:30 | disposition home health service (06) | DRG 65 ==
LOC: M ED 09:53 → M ED INP 12:16 → M PCU 16:11
PROVIDERS: ADMIT General Practice; ATTEND General Practice
DX: I63.531 Cerebral infarction due to unspecified occlusion or stenosis of right posterior cerebral artery (principal); G81.92 Hemiplegia, unspecified affecting left dominant side; E78.5 Hyperlipidemia, unspecified; I10 Essential (primary) hypertension; R47.1 Dysarthria and anarthria; E55.9 Vitamin D deficiency, unspecified; I16.0 Hypertensive urgency; Z79.82 Long term (current) use of aspirin; Z79.899 Other long term (current) drug therapy; Z88.8 Allergy status to other drugs, medicaments and biological substances; Z77.22 Contact with and (suspected) exposure to environmental tobacco smoke (acute) (chronic)

== ENCOUNTER 2018-12-24 09:45 | Outpatient (RCR) | payer MEDICARE, BC ==
[~2018-12-24 09:45] MED LIST: AIRB1TAB PO; AMLO5TAB6 PO; ASPI81CH8 PO; ASPI81TA85 PO; ATEN50TA2 PO; CLOP75TA2 PO; CRES10TA PO; LISI10TA15 PO; LISI10TA4 PO
== END 2018-12-25 | disposition home or self-care (01) ==
LOC: M OT 09:45
PROVIDERS: ATTEND Physician Assistant
DX: I69.354 Hemiplegia and hemiparesis following cerebral infarction affecting left non-dominant side (principal); I69.393 Ataxia following cerebral infarction; I69.392 Facial weakness following cerebral infarction; R49.0 Dysphonia

== ENCOUNTER → 2019-01-02 | Outpatient (REF) | payer MEDICARE, BC ==
[2019-01-02 14:31] LABS: BASO # 0.1 10^3/uL (0.0-0.2); BASO % 1.1 % (0.0-1.0); EOS # 0.2 10^3/uL (0.0-0.5); EOS % 2.6 % (0.0-3.0); HEMATOCRIT 45.9 % (36.0-47.0); HEMOGLOBIN 15.4 g/dl (12.0-15.5); LYMPH # 1.5 10^3/uL (1.5-5.0); LYMPH % 22.9 % (24.0-44.0); MEAN CORPUSCULAR HEMOGLOBIN 30.9 pg (27.0-33.0); MEAN CORPUSCULAR HGB CONC 33.6 g/dl (32.0-36.5); MEAN CORPUSCULAR VOLUME 92.2 fl (80.0-96.0); MONO # 0.5 10^3/uL (0.0-0.8); MONO % 7.8 % (0.0-5.0); NEUTROPHILS # 4.3 10^3/uL (1.5-8.5); NEUTROPHILS % 65.3 % (36.0-66.0); PLATELET COUNT, AUTOMATED 287 10^3/uL (150-450); RED BLOOD COUNT 4.98 10^6/uL (4.00-5.40); WHITE BLOOD COUNT 6.6 10^3/uL (4.0-10.0)
[2019-01-02 14:39] LABS: ALT/SGPT 87 U/L (12-78); BILIRUBIN,TOTAL 0.7 MG/DL (0.2-1.0); BLOOD UREA NITROGEN 9 MG/DL (7-18); CALCIUM LEVEL 9.2 MG/DL (8.8-10.2); CARBON DIOXIDE LEVEL 30 MEQ/L (21-32); CHLORIDE LEVEL 105 MEQ/L (98-107); CHOLESTEROL LEVEL 137 MG/DL (<200); CHOLESTEROL RISK RATIO 2.795 (<5); CREATININE FOR GFR 0.72 MG/DL (0.55-1.30); GLOMERULAR FILTRATION RATE > 60.0 (>39); GLUCOSE, FASTING 114 MG/DL (70-100); HDL CHOLESTEROL 49 MG/DL (>40); LDL CHOLESTEROL 59 MG/DL (<100); NON-HDL-C 88 MG/DL; POTASSIUM SERUM 4.4 MEQ/L (3.5-5.1); SODIUM LEVEL 141 MEQ/L (136-145); TOTAL PROTEIN 7.4 GM/DL (6.4-8.2); TRIGLYCERIDES LEVEL 146 MG/DL (<150)
[2019-01-02 14:44] LABS: TOTAL 25(OH) VITAMIN D 33.9 NG/ML (30.0-100.0)
[2019-01-02 14:48] LABS: HEMOGLOBIN A1c 6.3 %
== END ==
LOC: M SFHCSACK 08:00
PROVIDERS: ATTEND Physician Assistant
DX: I10 Essential (primary) hypertension (principal); E78.2 Mixed hyperlipidemia; R73.09 Other abnormal glucose; E55.9 Vitamin D deficiency, unspecified

== ENCOUNTER 2019-01-21 09:55 | Outpatient (RCR) | payer MEDICARE, BC | END 2019-01-24 | LOC: M ST 09:55 | PROVIDERS: ATTEND Physician Assistant | DX: R29.898 Other symptoms and signs involving the musculoskeletal system (principal); R53.1 Weakness; Z51.89 Encounter for other specified aftercare; I63.59 Cerebral infarction due to unspecified occlusion or stenosis of other cerebral artery ==

== ENCOUNTER 2019-02-10 10:13 | Outpatient (RCR) | payer MEDICARE, BC | END 2019-02-24 | LOC: M ST 10:13 | PROVIDERS: ATTEND Physician Assistant | DX: Z51.89 Encounter for other specified aftercare (principal); R49.0 Dysphonia ==

== ENCOUNTER → 2019-03-12 | Outpatient (REF) | payer MEDICARE, BC ==
[2019-03-12 13:46] LABS: BASO # 0.1 10^3/uL (0.0-0.2); BASO % 1.1 % (0.0-1.0); EOS # 0.2 10^3/uL (0.0-0.5); EOS % 3.1 % (0.0-3.0); HEMATOCRIT 46.3 % (36.0-47.0); HEMOGLOBIN 15.3 g/dl (12.0-15.5); LYMPH # 1.5 10^3/uL (1.5-5.0); LYMPH % 23.3 % (24.0-44.0); MEAN CORPUSCULAR HEMOGLOBIN 30.7 pg (27.0-33.0); MEAN CORPUSCULAR VOLUME 92.8 fl (80.0-96.0); MONO # 0.4 10^3/uL (0.0-0.8); MONO % 6.9 % (0.0-5.0); NEUTROPHILS % 65.1 % (36.0-66.0); PLATELET COUNT, AUTOMATED 283 10^3/uL (150-450); RED BLOOD COUNT 4.99 10^6/uL (4.00-5.40); WHITE BLOOD COUNT 6.2 10^3/uL (4.0-10.0)
[2019-03-12 13:53] LABS: ALBUMIN 4.2 GM/DL (3.2-5.2); ALT/SGPT 89 U/L (12-78); BILIRUBIN,TOTAL 0.7 MG/DL (0.2-1.0); BLOOD UREA NITROGEN 8 MG/DL (7-18); CARBON DIOXIDE LEVEL 27 MEQ/L (21-32); CHLORIDE LEVEL 107 MEQ/L (98-107); CHOLESTEROL LEVEL 147 MG/DL (<200); CHOLESTEROL RISK RATIO 3.127 (<5); CREATININE FOR GFR 0.63 MG/DL (0.55-1.30); GLOMERULAR FILTRATION RATE > 60.0 (>39); GLUCOSE, FASTING 115 MG/DL (70-100); HDL CHOLESTEROL 47 MG/DL (>40); LDL CHOLESTEROL 72 MG/DL (<100); NON-HDL-C 100 MG/DL; SODIUM LEVEL 142 MEQ/L (136-145); TOTAL PROTEIN 7.5 GM/DL (6.4-8.2); TRIGLYCERIDES LEVEL 139 MG/DL (<150)
== END ==
LOC: M LABNEURO 13:07
PROVIDERS: ATTEND Psychiatry & Neurology Neurology
DX: H53.8 Other visual disturbances (principal); Z79.82 Long term (current) use of aspirin; Z79.899 Other long term (current) drug therapy

== ENCOUNTER → 2019-08-21 | Outpatient (REF) | payer MEDICARE, BC ==
[~2019-08-21] MED LIST changes: -AIRB1TAB PO; +AMLO1TAB24 PO; -AMLO5TAB6 PO; -ASPI81TA85 PO; +ASPI81TA86 PO; +LISI10TA22 PO; -LISI10TA4 PO; +MV-M1TAB29 PO
[2019-08-21 11:59] LABS: BASO # 0.1 10^3/uL (0.0-0.2); BASO % 0.9 % (0.0-1.0); EOS # 0.1 10^3/uL (0.0-0.5); EOS % 1.6 % (0.0-3.0); HEMATOCRIT 46.2 % (36.0-47.0); HEMOGLOBIN 14.9 g/dl (12.0-15.5); LYMPH # 1.7 10^3/uL (1.5-5.0); LYMPH % 24.2 % (24.0-44.0); MEAN CORPUSCULAR HEMOGLOBIN 29.9 pg (27.0-33.0); MEAN CORPUSCULAR HGB CONC 32.3 g/dl (32.0-36.5); MEAN CORPUSCULAR VOLUME 92.8 fl (80.0-96.0); MONO # 0.5 10^3/uL (0.0-0.8); NEUTROPHILS # 4.6 10^3/uL (1.5-8.5); NEUTROPHILS % 65.9 % (36.0-66.0); PLATELET COUNT, AUTOMATED 295 10^3/uL (150-450); RED BLOOD COUNT 4.98 10^6/uL (4.00-5.40)
[2019-08-21 12:22] LABS: ALT/SGPT 78 U/L (12-78); BILIRUBIN,TOTAL 0.6 MG/DL (0.2-1.0); BLOOD UREA NITROGEN 9 MG/DL (7-18); CALCIUM LEVEL 9.3 MG/DL (8.8-10.2); CARBON DIOXIDE LEVEL 29 MEQ/L (21-32); CHLORIDE LEVEL 107 MEQ/L (98-107); CHOLESTEROL LEVEL 192 MG/DL (<200); CHOLESTEROL RISK RATIO 3.918 (<5); CREATININE FOR GFR 0.61 MG/DL (0.55-1.30); FREE T4 1.04 NG/DL (0.76-1.46); GLOMERULAR FILTRATION RATE > 60.0 (>39); GLUCOSE, FASTING 124 MG/DL (70-100); HDL CHOLESTEROL 49 MG/DL (>40); LDL CHOLESTEROL 118 MG/DL (<100); NON-HDL-C 143 MG/DL; POTASSIUM SERUM 4.5 MEQ/L (3.5-5.1); SODIUM LEVEL 140 MEQ/L (136-145); TOTAL 25(OH) VITAMIN D 42.9 NG/ML (30.0-100.0); TOTAL PROTEIN 7.5 GM/DL (6.4-8.2); TRIGLYCERIDES LEVEL 125 MG/DL (<150)
== END ==
LOC: M SFHCPLAZ 08:56
PROVIDERS: ATTEND Physician Assistant
DX: I10 Essential (primary) hypertension (principal); E55.9 Vitamin D deficiency, unspecified; E78.2 Mixed hyperlipidemia; Z13.29 Encounter for screening for other suspected endocrine disorder

== ENCOUNTER → 2020-09-16 | Outpatient (CLI) | payer MEDICARE, BC ==
[2020-09-16 13:31] LABS: HEMATOCRIT 45.3 % (36.0-47.0); HEMOGLOBIN 14.8 g/dl (12.0-15.5); MEAN CORPUSCULAR HEMOGLOBIN 29.5 pg (27.0-33.0); MEAN CORPUSCULAR HGB CONC 32.7 g/dl (32.0-36.5); MEAN CORPUSCULAR VOLUME 90.4 fl (80.0-96.0); PLATELET COUNT, AUTOMATED 279 10^3/uL (150-450); RED BLOOD COUNT 5.01 10^6/uL (4.00-5.40); WHITE BLOOD COUNT 7.1 10^3/uL (4.0-10.0)
[2020-09-16 13:58] LABS: ALBUMIN 4.1 GM/DL (3.2-5.2); ALT/SGPT 121 U/L (12-78); BILIRUBIN,TOTAL 0.6 MG/DL (0.2-1.0); BLOOD UREA NITROGEN 8 MG/DL (7-18); CALCIUM LEVEL 9.3 MG/DL (8.8-10.2); CARBON DIOXIDE LEVEL 27 MEQ/L (21-32); CHLORIDE LEVEL 106 MEQ/L (98-107); CHOLESTEROL LEVEL 139 MG/DL (<200); CHOLESTEROL RISK RATIO 3.564 (<5); CREATININE FOR GFR 0.55 MG/DL (0.55-1.30); GLOMERULAR FILTRATION RATE > 60.0 (>32); GLUCOSE, FASTING 128 MG/DL (70-100); HDL CHOLESTEROL 39 MG/DL (>40); LDL CHOLESTEROL 71 MG/DL (<100); NON-HDL-C 100 MG/DL; SODIUM LEVEL 142 MEQ/L (136-145); TRIGLYCERIDES LEVEL 144 MG/DL (<150)
[2020-09-16 14:11] LABS: CREATININE, URINE 36.7 MG/DL; MALB URINE SIEMENS 18.7 MG/L; MAU/CREAT RATIO 50.9 MCG/MG (0.0-30.0)
== END ==
LOC: M PLALAB 10:57
PROVIDERS: ATTEND Physician Assistant
DX: E78.2 Mixed hyperlipidemia (principal); I10 Essential (primary) hypertension; R79.89 Other specified abnormal findings of blood chemistry
CPT/HCPCS: 36415; 80053; 80061; 82043; 85027; G0463

== ENCOUNTER → 2021-06-05 | Outpatient (CLI) | payer MEDICARE, BC ==
[~2021-06-05] MED LIST changes: -LISI10TA15 PO; +LISI10TA24 PO
[2021-06-05 15:31] LABS: HEMOGLOBIN A1c 10.1 %
[2021-06-05 15:48] LABS: ALT/SGPT 85 U/L (12-78); BILIRUBIN,TOTAL 0.7 MG/DL (0.2-1.0); BLOOD UREA NITROGEN 9 MG/DL (7-18); CALCIUM LEVEL 9.6 MG/DL (8.8-10.2); CARBON DIOXIDE LEVEL 29 MEQ/L (21-32); CHLORIDE LEVEL 104 MEQ/L (98-107); CHOLESTEROL LEVEL 136 MG/DL (<200); CREATININE FOR GFR 0.59 MG/DL (0.55-1.30); FREE T4 1.09 NG/DL (0.76-1.46); GLOMERULAR FILTRATION RATE > 60.0 (>32); GLUCOSE, FASTING 198 MG/DL (70-100); HDL CHOLESTEROL 44 MG/DL (>40); LDL CHOLESTEROL 69 MG/DL (<100); NON-HDL-C 92 MG/DL; POTASSIUM SERUM 3.9 MEQ/L (3.5-5.1); SODIUM LEVEL 139 MEQ/L (136-145); TOTAL PROTEIN 7.2 GM/DL (6.4-8.2); TRIGLYCERIDES LEVEL 115 MG/DL (<150)
[2021-06-05 15:49] LABS: TOTAL 25(OH) VITAMIN D 28.3 NG/ML (30.0-100.0)
== END ==
LOC: M PLALAB 12:23
PROVIDERS: ATTEND Nurse Practitioner Adult Health
DX: E55.9 Vitamin D deficiency, unspecified (principal); I10 Essential (primary) hypertension; E78.2 Mixed hyperlipidemia; R73.9 Hyperglycemia, unspecified; Z13.29 Encounter for screening for other suspected endocrine disorder; Z79.899 Other long term (current) drug therapy

== ENCOUNTER → 2021-11-16 | Outpatient (CLI) | payer MEDICARE, BC ==
[2021-11-16 12:36] LABS: HEMOGLOBIN A1c 9.5 %
[2021-11-16 13:01] LABS: ALBUMIN 4.2 GM/DL (3.2-5.2); ALT/SGPT 56 U/L (12-78); BILIRUBIN,TOTAL 0.9 MG/DL (0.2-1.0); BLOOD UREA NITROGEN 10 MG/DL (7-18); CALCIUM LEVEL 9.7 MG/DL (8.8-10.2); CARBON DIOXIDE LEVEL 27 MEQ/L (21-32); CHLORIDE LEVEL 105 MEQ/L (98-107); CHOLESTEROL LEVEL 134 MG/DL (<200); CHOLESTEROL RISK RATIO 2.627 (<5); CREATININE FOR GFR 0.49 MG/DL (0.55-1.30); GLOMERULAR FILTRATION RATE > 60.0 (>32); GLUCOSE, FASTING 105 MG/DL (70-100); HDL CHOLESTEROL 51 MG/DL (>40); LDL CHOLESTEROL 60 MG/DL (<100); NON-HDL-C 83 MG/DL; POTASSIUM SERUM 4.4 MEQ/L (3.5-5.1); SODIUM LEVEL 140 MEQ/L (136-145); TOTAL PROTEIN 7.5 GM/DL (6.4-8.2); TRIGLYCERIDES LEVEL 113 MG/DL (<150)
[2021-11-16 13:35] LABS: TOTAL 25(OH) VITAMIN D 39.3 NG/ML (30.0-100.0)
== END ==
LOC: M PLALAB 08:39
PROVIDERS: ATTEND Nurse Practitioner Adult Health
DX: E11.9 Type 2 diabetes mellitus without complications (principal); E78.2 Mixed hyperlipidemia; E55.9 Vitamin D deficiency, unspecified

== ENCOUNTER → 2021-12-04 | Outpatient (REF) | payer MEDICARE, BC ==
[2021-12-04 14:15] LABS: BASO # 0.1 10^3/uL (0.0-0.2); BASO % 1.1 % (0.0-1.0); EOS # 0.1 10^3/uL (0.0-0.5); EOS % 1.5 % (0.0-3.0); HEMATOCRIT 46.1 % (36.0-47.0); HEMOGLOBIN 14.9 g/dl (12.0-15.5); LYMPH # 1.6 10^3/uL (1.5-5.0); LYMPH % 24.2 % (24.0-44.0); MEAN CORPUSCULAR HEMOGLOBIN 29.9 pg (27.0-33.0); MEAN CORPUSCULAR HGB CONC 32.3 g/dl (32.0-36.5); MEAN CORPUSCULAR VOLUME 92.6 fl (80.0-96.0); MONO # 0.5 10^3/uL (0.0-0.8); MONO % 7.4 % (2.0-8.0); NEUTROPHILS # 4.4 10^3/uL (1.5-8.5); NEUTROPHILS % 65.5 % (36.0-66.0); PLATELET COUNT, AUTOMATED 324 10^3/uL (150-450); RED BLOOD COUNT 4.98 10^6/uL (4.00-5.40); WHITE BLOOD COUNT 6.7 10^3/uL (4.0-10.0)
[2021-12-04 15:29] LABS: ALBUMIN 4.1 GM/DL (3.2-5.2); ALT/SGPT 52 U/L (12-78); BILIRUBIN,TOTAL 0.6 MG/DL (0.2-1.0); BLOOD UREA NITROGEN 8 MG/DL (7-18); CALCIUM LEVEL 9.4 MG/DL (8.8-10.2); CARBON DIOXIDE LEVEL 28 MEQ/L (21-32); CHLORIDE LEVEL 106 MEQ/L (98-107); CHOLESTEROL LEVEL 125 MG/DL (<200); CHOLESTEROL RISK RATIO 2.551 (<5); CREATININE FOR GFR 0.55 MG/DL (0.55-1.30); GLOMERULAR FILTRATION RATE > 60.0 (>32); GLUCOSE, FASTING 99 MG/DL (70-100); HDL CHOLESTEROL 49 MG/DL (>40); LDL CHOLESTEROL 58 MG/DL (<100); NON-HDL-C 76 MG/DL; POTASSIUM SERUM 4.2 MEQ/L (3.5-5.1); SODIUM LEVEL 139 MEQ/L (136-145); TOTAL PROTEIN 7.4 GM/DL (6.4-8.2); TRIGLYCERIDES LEVEL 90 MG/DL (<150)
[2021-12-04 17:08] LABS: HEMOGLOBIN A1c 7.9 %
== END ==
LOC: M PLALAB 13:39
PROVIDERS: ATTEND Psychiatry & Neurology Neurology
DX: E11.9 Type 2 diabetes mellitus without complications (principal); Z86.73 Personal history of transient ischemic attack (TIA), and cerebral infarction without residual deficits

== ENCOUNTER → 2022-01-01 | Outpatient (CLI) | payer MEDICARE, BC ==
[2022-01-01 16:16] LABS: ALBUMIN 4.2 GM/DL (3.2-5.2); ALKALINE PHOSPHATASE 94 U/L (45-117); ALT/SGPT 36 U/L (12-78); AST/SGOT 26 U/L (7-37); BILIRUBIN,TOTAL 0.7 MG/DL (0.2-1.0); BLOOD UREA NITROGEN 7 MG/DL (7-18); CALCIUM LEVEL 9.6 MG/DL (8.8-10.2); CARBON DIOXIDE LEVEL 27 MEQ/L (21-32); CHLORIDE LEVEL 105 MEQ/L (98-107); CREATININE FOR GFR 0.48 MG/DL (0.55-1.30); GLOMERULAR FILTRATION RATE > 60.0 (>32); GLUCOSE, FASTING 86 MG/DL (70-100); POTASSIUM SERUM 4.2 MEQ/L (3.5-5.1); SODIUM LEVEL 141 MEQ/L (136-145); TOTAL PROTEIN 7.4 GM/DL (6.4-8.2)
[2022-01-01 22:30] LABS: HEMOGLOBIN A1c 6.2 %
== END ==
LOC: M PLALAB 08:43
PROVIDERS: ATTEND Nurse Practitioner Adult Health
DX: E11.9 Type 2 diabetes mellitus without complications (principal)

== ENCOUNTER → 2022-04-16 | Outpatient (CLI) | payer MEDICARE, BC ==
[2022-04-16 14:18] LABS: ALBUMIN 4.3 G/DL (3.2-5.2); ALKALINE PHOSPHATASE 83 U/L (46-116); ALT/SGPT 23 U/L (7.0-40); AST/SGOT 20 U/L (<34); BILIRUBIN,TOTAL 0.6 MG/DL (0.3-1.2); BLOOD UREA NITROGEN 11 MG/DL (9-23); CARBON DIOXIDE LEVEL 32 MMOL/L (20-31); CHLORIDE LEVEL 105 MMOL/L (98-107); CREATININE FOR GFR 0.66 MG/DL (0.55-1.30); GLOMERULAR FILTRATION RATE > 60.0 (>32); GLUCOSE, FASTING 56 MG/DL (74-106); HEMOGLOBIN A1c 5.1 % (4.0-6.0); POTASSIUM SERUM 4.4 MMOL/L (3.5-5.1); SODIUM LEVEL 143 MMOL/L (136-145); TOTAL PROTEIN 7.2 G/DL (5.7-8.2)
== END ==
LOC: M PLALAB 09:22
PROVIDERS: ATTEND Nurse Practitioner Adult Health
DX: E11.9 Type 2 diabetes mellitus without complications (principal); E55.9 Vitamin D deficiency, unspecified

== ENCOUNTER → 2022-12-24 | Outpatient (CLI) | payer MEDICARE, BC ==
[2022-12-24 13:47] LABS: ALBUMIN 4.2 G/DL (3.2-5.2); ALKALINE PHOSPHATASE 70 U/L (46-116); ALT/SGPT 15 U/L (7.0-40); AST/SGOT 15 U/L (<34); BILIRUBIN,TOTAL 0.6 MG/DL (0.3-1.2); BLOOD UREA NITROGEN 12 MG/DL (9-23); CALCIUM LEVEL 9.4 MG/DL (8.3-10.6); CARBON DIOXIDE LEVEL 29 MMOL/L (20-31); CHLORIDE LEVEL 104 MMOL/L (98-107); CHOLESTEROL LEVEL 158 MG/DL (<200); CHOLESTEROL RISK RATIO 2.74 (<5); GLOMERULAR FILTRATION RATE > 60.0 (>32); GLUCOSE, FASTING 101 MG/DL (74-106); HDL CHOLESTEROL 57.5 MG/DL (>40); LDL CHOLESTEROL 80.3 MG/DL (<100); NON-HDL-C 100.5 MG/DL; POTASSIUM SERUM 4.2 MMOL/L (3.5-5.1); SODIUM LEVEL 141 MMOL/L (136-145); TOTAL PROTEIN 7.1 G/DL (5.7-8.2); TRIGLYCERIDES LEVEL 101 MG/DL (<150)
[2022-12-24 14:04] LABS: CREATININE, URINE 40.3 MG/DL; MAU/CREAT RATIO 76.9 MCG/MG (0.0-30.0)
[2022-12-24 14:23] LABS: HEMOGLOBIN A1c 5.1 % (4.0-6.0)
== END ==
LOC: M PLALAB 09:19
PROVIDERS: ATTEND Nurse Practitioner Adult Health
DX: E11.9 Type 2 diabetes mellitus without complications (principal); I10 Essential (primary) hypertension; E55.9 Vitamin D deficiency, unspecified

== ENCOUNTER 2023-02-05 07:52 | Day surgery (SDC) | payer MEDICARE, BC ==
[~2023-02-05] VITALS: Ht 160 cm; Wt 72.0 kg
[~2023-02-05 07:52] MED LIST changes: +CEFUROXIME 1MG/0.1ML INTRACAMERAL INJ As Ordered ONE; +CYCLOPENTOLATE 1% OPHTH SOLN 2ML BTL OS SCH; +LIDOCAINE 1% SDV 5ML VIAL As Ordered ONE; +METF-838 PO; +OFLOXACIN 0.3 % (OCUFLOX) OPTH SOL 5ML OS SCH; +PHENYLEPHRINE 2.5% OPHTH SOL 2ML OS SCH; +PROPARACAINE 0.5% OPHTH SOL 15ML OS ONE; +ROSU10TA6 PO; +TROPICAMIDE 1% OPHTH SOLN 15ML OS SCH
[2023-02-05] MEDS ORDERED: MIDAZOLAM INJ 2MG/2ML VIAL As Ordered ONE (09:16)
[2023-02-05 09:55] VITALS: BP 170/85; TEMP 97.1; O2SAT 95
== END 2023-02-05 10:20 | disposition home or self-care (01) ==
LOC: M SDC 07:52
PROVIDERS: ATTEND Ophthalmology
DX: H25.12 Age-related nuclear cataract, left eye (principal)
CPT/HCPCS: 66984; J0697; J2250; V2632

== ENCOUNTER 2023-02-26 06:16 | Day surgery (SDC) | payer MEDICARE, BC ==
[~2023-02-26] VITALS: Ht 160 cm; Wt 72.1 kg
[~2023-02-26 06:16] MED LIST changes: -CEFUROXIME 1MG/0.1ML INTRACAMERAL INJ As Ordered ONE; +CYCLOPENTOLATE 1% OPHTH SOLN 2ML BTL OD SCH; -CYCLOPENTOLATE 1% OPHTH SOLN 2ML BTL OS SCH; -LIDOCAINE 1% SDV 5ML VIAL As Ordered ONE; +OFLOXACIN 0.3 % (OCUFLOX) OPTH SOL 5ML OD SCH; -OFLOXACIN 0.3 % (OCUFLOX) OPTH SOL 5ML OS SCH; +PHENYLEPHRINE 2.5% OPHTH SOL 2ML OD SCH; -PHENYLEPHRINE 2.5% OPHTH SOL 2ML OS SCH; +PROPARACAINE 0.5% OPHTH SOL 15ML OD ONE; -PROPARACAINE 0.5% OPHTH SOL 15ML OS ONE; +TROPICAMIDE 1% OPHTH SOLN 15ML OD SCH; -TROPICAMIDE 1% OPHTH SOLN 15ML OS SCH
[2023-02-26] MEDS ORDERED: LIDOCAINE 1% SDV 5ML VIAL As Ordered ONE (06:32)
[2023-02-26] MEDS ORDERED: BSS IRR 500ML/OMIDRIA 4ML IRR BAG (OR ONLY) As Ordered ONE (06:33)
[2023-02-26] MEDS ORDERED: CEFUROXIME 1MG/0.1ML INTRACAMERAL INJ As Ordered ONE (06:34)
[2023-02-26] MEDS ORDERED: MIDAZOLAM INJ 2MG/2ML VIAL As Ordered ONE (07:15)
[2023-02-26] MEDS ORDERED: fentaNYL 100 MCG/2 ML INJECTION As Ordered ONE (07:16)
[2023-02-26 08:04] VITALS: BP 153/74; TEMP 97.6; O2SAT 97
== END 2023-02-26 08:16 | disposition home or self-care (01) ==
LOC: M SDC 06:16
PROVIDERS: ATTEND Ophthalmology
DX: E11.36 Type 2 diabetes mellitus with diabetic cataract (principal); H25.11 Age-related nuclear cataract, right eye; I10 Essential (primary) hypertension; G47.30 Sleep apnea, unspecified; Z79.899 Other long term (current) drug therapy; Z79.84 Long term (current) use of oral hypoglycemic drugs; Z86.73 Personal history of transient ischemic attack (TIA), and cerebral infarction without residual deficits
CPT/HCPCS: 66984; 92015; J0697; J1097; J2250; J3010; V2788

== ENCOUNTER → 2023-06-04 | Outpatient (CLI) | payer MEDICARE ==
[~2023-06-04] MED LIST changes: -CYCLOPENTOLATE 1% OPHTH SOLN 2ML BTL OD SCH; -OFLOXACIN 0.3 % (OCUFLOX) OPTH SOL 5ML OD SCH; -PHENYLEPHRINE 2.5% OPHTH SOL 2ML OD SCH; -PROPARACAINE 0.5% OPHTH SOL 15ML OD ONE; -TROPICAMIDE 1% OPHTH SOLN 15ML OD SCH
[2023-06-04 11:33] LABS: CREATININE, URINE 46.2 MG/DL; MAU/CREAT RATIO 77.9 MCG/MG (0.0-30.0)
[2023-06-04 11:47] LABS: ALBUMIN 4.2 G/DL (3.2-5.2); ALKALINE PHOSPHATASE 70 U/L (46-116); ALT/SGPT 18 U/L (7.0-40); AST/SGOT 13 U/L (<34); BILIRUBIN,TOTAL 0.6 MG/DL (0.3-1.2); BLOOD UREA NITROGEN 18 MG/DL (9-23); CALCIUM LEVEL 9.3 MG/DL (8.3-10.6); CARBON DIOXIDE LEVEL 30 MMOL/L (20-31); CHLORIDE LEVEL 107 MMOL/L (98-107); CHOLESTEROL LEVEL 149 MG/DL (<200); CHOLESTEROL RISK RATIO 2.76 (<5); CREATININE FOR GFR 0.71 MG/DL (0.55-1.30); GLOMERULAR FILTRATION RATE > 60.0 (>32); GLUCOSE, FASTING 94 MG/DL (74-106); HDL CHOLESTEROL 53.9 MG/DL (>40); LDL CHOLESTEROL 72.1 MG/DL (<100); NON-HDL-C 95.1 MG/DL; POTASSIUM SERUM 4.3 MMOL/L (3.5-5.1); SODIUM LEVEL 142 MMOL/L (136-145); TOTAL 25(OH) VITAMIN D 35.5 NG/ML (20.0-100.0); TOTAL PROTEIN 6.9 G/DL (5.7-8.2); TRIGLYCERIDES LEVEL 115 MG/DL (<150)
[2023-06-04 12:12] LABS: HEMOGLOBIN A1c 5.5 % (4.0-6.0)
== END ==
LOC: M PLALAB 08:33
PROVIDERS: ATTEND Nurse Practitioner Adult Health
DX: E11.9 Type 2 diabetes mellitus without complications (principal); E78.2 Mixed hyperlipidemia; I10 Essential (primary) hypertension; E55.9 Vitamin D deficiency, unspecified

== ENCOUNTER 2023-08-16 09:08 | Emergency (ER) | payer MEDICARE, BC ==
[~2023-08-16] VITALS: Ht 160 cm; Wt 74.4 kg
[~2023-08-16 09:08] MED LIST changes: -ROSU10TA6 PO; +ROSU10TA61 PO
[2023-08-16] MEDS: BACITRACIN OINTMENT 30GM TUBE TOP ONE (10:57)
[2023-08-16] MEDS: BOOSTRIX VACCINE (TETANUS/DIPHTH/ACEL. PERTUSSIS) 0.5ML SYR IM.IMMUN ONE (10:57)
[2023-08-16 12:29] VITALS: BP 184/96; TEMP 97.4; O2SAT 97
== END 2023-08-16 12:33 | disposition home or self-care (01) ==
LOC: M ED 09:08
DX: S01.01XA Laceration without foreign body of scalp, initial encounter (principal); S51.012A Laceration without foreign body of left elbow, initial encounter; Y92.019 Unspecified place in single-family (private) house as the place of occurrence of the external cause; Y93.9 Activity, unspecified; Y99.9 Unspecified external cause status; W19.XXXA Unspecified fall, initial encounter; G47.33 Obstructive sleep apnea (adult) (pediatric); Z88.8 Allergy status to other drugs, medicaments and biological substances; Z91.041 Radiographic dye allergy status; Z79.1 Long term (current) use of non-steroidal anti-inflammatories (NSAID); Z79.84 Long term (current) use of oral hypoglycemic drugs; Z79.899 Other long term (current) drug therapy; Z23 Encounter for immunization

== ENCOUNTER → 2023-12-06 | Outpatient (CLI) | payer MEDICARE, BC ==
[2023-12-06 13:32] LABS: ALBUMIN 4.1 G/DL (3.2-5.2); ALKALINE PHOSPHATASE 78 U/L (46-116); ALT/SGPT 18 U/L (7.0-40); AST/SGOT 13 U/L (<34); BILIRUBIN,TOTAL 0.5 MG/DL (0.3-1.2); BLOOD UREA NITROGEN 13 MG/DL (9-23); CARBON DIOXIDE LEVEL 30 MMOL/L (20-31); CHLORIDE LEVEL 107 MMOL/L (98-107); CHOLESTEROL LEVEL 153 MG/DL (<200); CHOLESTEROL RISK RATIO 3.04 (<5); CREATININE FOR GFR 0.68 MG/DL (0.55-1.30); GLOMERULAR FILTRATION RATE > 60.0 (>32); GLUCOSE, FASTING 98 MG/DL (74-106); HDL CHOLESTEROL 50.3 MG/DL (>40); LDL CHOLESTEROL 79.5 MG/DL (<100); NON-HDL-C 102.7 MG/DL; POTASSIUM SERUM 4.2 MMOL/L (3.5-5.1); SODIUM LEVEL 142 MMOL/L (136-145); TOTAL PROTEIN 7.4 G/DL (5.7-8.2); TRIGLYCERIDES LEVEL 116 MG/DL (<150)
[2023-12-06 13:57] LABS: CREATININE, URINE 38.3 MG/DL; MAU/CREAT RATIO 39.1 MCG/MG (0.0-30.0)
[2023-12-06 14:16] LABS: HEMOGLOBIN A1c 5.6 % (4.0-6.0)
== END ==
LOC: M PLALAB 09:29
PROVIDERS: ATTEND Nurse Practitioner Adult Health
DX: I10 Essential (primary) hypertension (principal); E11.9 Type 2 diabetes mellitus without complications; E78.2 Mixed hyperlipidemia; E55.9 Vitamin D deficiency, unspecified

== ENCOUNTER 2024-05-19 10:15 | Outpatient (RCR) | payer MEDICARE, BC | END 2024-05-25 | LOC: M ST 10:15 | PROVIDERS: ATTEND Otolaryngology | DX: R49.0 Dysphonia (principal) ==

== ENCOUNTER 2024-05-26 14:39 | Outpatient (RCR) | payer MEDICARE, BC | END 2024-06-24 | LOC: M ST 14:39 | PROVIDERS: ATTEND Otolaryngology | DX: R49.0 Dysphonia (principal); Z86.73 Personal history of transient ischemic attack (TIA), and cerebral infarction without residual deficits ==

== ENCOUNTER → 2024-06-01 | Outpatient (CLI) | payer MEDICARE, BC ==
[2024-06-01 15:01] LABS: FREE T4 1.11 NG/DL (0.89-1.76); THYROID STIMULATING HORMONE 2.23 uIU/ML (0.55-4.78)
== END ==
LOC: M PLALAB 09:34
PROVIDERS: ATTEND Nurse Practitioner Adult Health
DX: E55.9 Vitamin D deficiency, unspecified (principal); E11.9 Type 2 diabetes mellitus without complications; Z13.29 Encounter for screening for other suspected endocrine disorder

== ENCOUNTER 2024-09-01 10:05 | Outpatient (RCR) | payer MEDICARE, BC | END 2024-09-24 | LOC: M ST 10:05 | PROVIDERS: ATTEND Otolaryngology | DX: R49.0 Dysphonia (principal) ==

== ENCOUNTER 2024-09-29 12:46 | Outpatient (RCR) | payer MEDICARE, BC | END 2024-10-25 | LOC: M ST 12:46 | PROVIDERS: ATTEND Otolaryngology | DX: R49.0 Dysphonia (principal) ==

== ENCOUNTER → 2024-11-23 | Outpatient (CLI) | payer MEDICARE, BC ==
[2024-11-23 14:02] LABS: PLATELET COUNT, AUTOMATED 407 10^3/uL (150-450)
[2024-11-23 14:04] LABS: ALT/SGPT 15.0 U/L (7.0-40); AST/SGOT 16.0 U/L (<34); CALCIUM LEVEL 9.3 MG/DL (8.3-10.6); CARBON DIOXIDE LEVEL 27.0 MMOL/L (20-31); CHLORIDE LEVEL 107.0 MMOL/L (98-107); CHOLESTEROL LEVEL 159.0 MG/DL (<200); CHOLESTEROL RISK RATIO 2.89 (<5); CREATININE FOR GFR 0.94 MG/DL (0.55-1.30); GLOMERULAR FILTRATION RATE 59.8 (>32); LDL CHOLESTEROL 81.6 MG/DL (<100); NON-HDL-C 104.0 MG/DL; POTASSIUM SERUM 4.1 MMOL/L (3.5-5.1); SODIUM LEVEL 144.0 MMOL/L (136-145); TRIGLYCERIDES LEVEL 112.0 MG/DL (<150)
[2024-11-23 14:05] LABS: FREE T4 1.05 NG/DL (0.89-1.76)
[2024-11-23 14:15] LABS: ESTIMATED AVERAGE GLUCOSE 120.0 MG/DL (60-110)
[2024-11-23 14:27] LABS: CREATININE, URINE 30.2 MG/DL; MALB URINE SIEMENS 13.0 MG/L; MAU/CREAT RATIO 43.0 MCG/MG (0.0-30.0)
== END ==
LOC: M PLALAB 09:38
PROVIDERS: ATTEND Nurse Practitioner Adult Health
DX: E55.9 Vitamin D deficiency, unspecified (principal); Z13.29 Encounter for screening for other suspected endocrine disorder; R07.89 Other chest pain; E11.9 Type 2 diabetes mellitus without complications; E78.2 Mixed hyperlipidemia; I10 Essential (primary) hypertension